=== PATIENT | male | born 1960 | race Caucasian/White ===

== ENCOUNTER 2022-05-16 18:18 | Inpatient (IN) | payer OTHER ==
[2022-05-16] MEDS ORDERED: Sodium Chloride 0.9% 1,000 ML IV ONE (19:12)
[2022-05-16 19:24] LABS: CHLORIDE,CL 102 mmol/L (98-107); SODIUM,NA 139 mmol/L (136-145)
[2022-05-16 19:25] LABS: ANION GAP 16.9 mmol/L (5-15); ESTIMATED GFR 57 mL/min (>=60)
[2022-05-16 19:41] LABS: CORONAVIRUS COVID-19 NAA NEGATIVE (NEGATIVE)
[2022-05-16] MEDS ORDERED: Iopamidol 755 Mg/ML 100 ML Bottle IVPUSH ONE (20:09)
[2022-05-16 21:44] LABS: ANION GAP 15.7 mmol/L (5-15); CHLORIDE,CL 105 mmol/L (98-107); ESTIMATED GFR 57 mL/min (>=60); SODIUM,NA 141 mmol/L (136-145)
[2022-05-16] MEDS: Enoxaparin 120 MG/0.8 ML Syringe SUBCUT SCH (21:56)
[2022-05-16] MEDS ORDERED: Sodium Chloride 0.9% 1,000 ML IV SCH (22:45)
[2022-05-16] MEDS ORDERED: Cyclobenzaprine 10 MG Tab PO PRN (22:46)
[2022-05-16] MEDS ORDERED: Oseltamivir 75 MG Cap PO ONE (22:46)
[2022-05-16] MEDS: Carvedilol 12.5 MG Tab PO SCH (23:33)
[2022-05-17] MEDS: Pregabalin 50 MG Cap PO SCH ×3 (00:03→21:07)
[2022-05-17 07:17] LABS: ANION GAP 14.1 mmol/L (5-15)
[2022-05-17] MEDS: Levothyroxine 100 MCG Tab PO SCH (08:35)
[2022-05-17] MEDS: Carvedilol 12.5 MG Tab PO SCH ×2 (08:35→21:08)
[2022-05-17] MEDS: Pantoprazole 40 MG Tab.CR PO SCH (08:35)
[2022-05-17] MEDS: Levothyroxine 50 MCG Tab PO SCH (08:35)
[2022-05-17] MEDS: Enoxaparin 120 MG/0.8 ML Syringe SUBCUT SCH ×2 (08:36→21:07)
[2022-05-17] MEDS: Isosorbide Mononitrate 30 MG Tab.ER PO SCH (08:36)
[2022-05-17] MEDS: Albuterol/Ipratropium 3.0-0.5 MG/3 ML Neb Soln NEB SCH ×4 (10:29→22:32)
[2022-05-17] MEDS: RANOLAZINE 500 MG PO SCH ×2 (10:46→21:10)
[2022-05-17] MEDS ORDERED: atorvaSTATin 10 MG Tab PO SCH (21:00)
[2022-05-18] MEDS: Albuterol/Ipratropium 3.0-0.5 MG/3 ML Neb Soln NEB SCH ×2 (03:41→06:32)
[2022-05-18] MEDS: Levothyroxine 50 MCG Tab PO SCH (06:32)
[2022-05-18] MEDS: Pantoprazole 40 MG Tab.CR PO SCH (06:32)
[2022-05-18 07:02] LABS: ANION GAP 15.2 mmol/L (5-15)
[2022-05-18] MEDS ORDERED: Apixaban 2.5 MG Tab PO ONE (07:54)
[2022-05-18] MEDS ORDERED: Enoxaparin 120 MG/0.8 ML Syringe SUBCUT ONE (07:58)
[2022-05-18] MEDS ORDERED: Oseltamivir 75 MG Cap PO SCH (09:00)
[2022-05-18] MEDS: Isosorbide Mononitrate 30 MG Tab.ER PO SCH (09:09)
[2022-05-18] MEDS: Carvedilol 12.5 MG Tab PO SCH (09:10)
[2022-05-18] MEDS: Levothyroxine 100 MCG Tab PO SCH (09:10)
[2022-05-18 09:11] VITALS: BP 138/80; PULSE 80
[2022-05-18] MEDS: Pregabalin 50 MG Cap PO SCH (09:11)
[2022-05-18] MEDS: RANOLAZINE 500 MG PO SCH (10:29)
== END 2022-05-18 09:35 | disposition home or self-care (01) | DRG 193 ==
LOC: VM.ED 18:18 → VM.MS 21:42
PROVIDERS: ADMIT Physician Assistant Medical; ATTEND Family Medicine
DX: J10.1 Influenza due to other identified influenza virus with other respiratory manifestations (principal); I26.94 Multiple subsegmental thrombotic pulmonary emboli without acute cor pulmonale; N17.9 Acute kidney failure, unspecified; I50.32 Chronic diastolic (congestive) heart failure; I25.10 Atherosclerotic heart disease of native coronary artery without angina pectoris; E78.5 Hyperlipidemia, unspecified; E03.9 Hypothyroidism, unspecified; E66.09 Other obesity due to excess calories; Z68.38 Body mass index [BMI] 38.0-38.9, adult; K29.50 Unspecified chronic gastritis without bleeding; G62.9 Polyneuropathy, unspecified; F31.9 Bipolar disorder, unspecified; I95.9 Hypotension, unspecified; E78.00 Pure hypercholesterolemia, unspecified; I11.0 Hypertensive heart disease with heart failure; F10.20 Alcohol dependence, uncomplicated; Z96.659 Presence of unspecified artificial knee joint; Z88.5 Allergy status to narcotic agent; Z90.49 Acquired absence of other specified parts of digestive tract; Z87.891 Personal history of nicotine dependence; Z88.8 Allergy status to other drugs, medicaments and biological substances; Z79.82 Long term (current) use of aspirin; Z79.890 Hormone replacement therapy; Z79.899 Other long term (current) drug therapy; I25.2 Old myocardial infarction; Z95.5 Presence of coronary angioplasty implant and graft
CPT/HCPCS: 0240U; 36415; 71275; 80048; 80053; 84484; 85025; 85379; 85610; 93005; 94640; 96360; 99285-25; A9270-GY; J1650; J7030; J7620-GY; Q9967

== ENCOUNTER 2022-06-29 17:02 | Emergency (ER) | payer OTHER ==
[2022-06-29 17:26] VITALS: BP 126/86; PULSE 79
== END 2022-06-29 19:05 | disposition home or self-care (01) ==
LOC: VM.ED 17:02
DX: M79.651 Pain in right thigh (principal); I25.10 Atherosclerotic heart disease of native coronary artery without angina pectoris; I11.0 Hypertensive heart disease with heart failure; I50.9 Heart failure, unspecified; E78.00 Pure hypercholesterolemia, unspecified; J44.9 Chronic obstructive pulmonary disease, unspecified; E03.9 Hypothyroidism, unspecified; Z88.5 Allergy status to narcotic agent; Z88.8 Allergy status to other drugs, medicaments and biological substances; Z79.01 Long term (current) use of anticoagulants; Z79.899 Other long term (current) drug therapy; Z79.82 Long term (current) use of aspirin
CPT/HCPCS: 36415; 85379; 99283